=== PATIENT | male | born 1975 | race Caucasian/White ===

== ENCOUNTER → 2022-08-02 | Day surgery (SDC) | payer OTHER ==
[2022-07-31 12:32] LABS: BASOPHILS # (AUTO) 0.1 (0.0-0.1); BASOPHILS % 1.1 % (0.0-1.0); EOSINOPHILS # (AUTO) 0.3 (0.0-0.4); EOSINOPHILS % 3.3 % (0.0-6.0); HEMATOCRIT 45.1 % (38.2-49.6); LYMPHOCYTES # (AUTO) 2.4 (1.0-3.2); MEAN CORPUSCULAR HEMOGLOBIN 28.4 pg (28-32); MEAN CORPUSCULAR HGB CONC 33.3 g/dL (31-35); MEAN CORPUSCULAR VOLUME 85.3 fL (81-99); MONOCYTES # (AUTO) 0.8 (0.2-0.8); MONOCYTES % 10.7 % (4.4-11.3); NEUTROPHILS % 52.4 % (38.7-80.0); PLATELET COUNT 289 x10e3/uL (140-360); RED BLOOD COUNT 5.29 x10e6/uL (4.3-5.7); RED CELL DISTRIBUTION WIDTH 13.7 % (11.7-14.4)
[~2022-08-02] MED LIST: ACETAMINOPHEN 1000 MG/100 ML 0 ML IV ONE; ATORVASTATIN CA10 MG PO; BREZTRI AEROS10.7 GM INH; DEXAMETHASONE SOD PHOS INJ 4 MG/ML SDV ONE; FENTANYL CITRATE/PF 100MCG/2 ML INJ ONE; GLIPIZIDE5 MG PO; IBUPROFEN200 MG PO; LIDOCAINE HCL 2% LOCAL INJ 5 ML SDV VIAL INJ ONE; LIDOCAINE HCL 4% 50 ML BTL ONE; LIDOCAINE HCL-PF 4% 40 MG/1 ML 5ML AMP ONE; NEXIUM20 MG PO; NOVOLIN 70100 UNIT/3 SC; ONDANSETRON HCL INJ 2MG/ML 2ML 2 MG/ML VIAL ONE; POVIDONE IODINE 0.05% 0.05 % ML PO ONE; PROPOFOL IV EMULSION 10 MG/ML 20 ML VIAL ONE; ROCURONIUM BROMIDE 10 MG/ML 5ML VIAL IV ONE; SEVOFLURANE INHAL SOLN 250 ML PEN BTL ONE; SUGAMMADEX SODIUM 200 MG/2 ML VIAL IV ONE
[2022-08-02 13:45] VITALS: BP 120/85
== END | disposition home or self-care (01) ==
LOC: ENDO 09:46
PROVIDERS: ATTEND Internal Medicine Critical Care Medicine
DX: J84.113 Idiopathic non-specific interstitial pneumonitis (principal); J44.9 Chronic obstructive pulmonary disease, unspecified; Z01.810 Encounter for preprocedural cardiovascular examination; Z01.812 Encounter for preprocedural laboratory examination; Z79.4 Long term (current) use of insulin; Z79.84 Long term (current) use of oral hypoglycemic drugs; Z79.1 Long term (current) use of non-steroidal anti-inflammatories (NSAID); Z79.899 Other long term (current) drug therapy; Z68.35 Body mass index [BMI] 35.0-35.9, adult; Z87.891 Personal history of nicotine dependence
CPT/HCPCS: 31624; 31628; 36415 ×2; 71045; 82948; 85025; 87102; 87116; 87205; 87206 ×2; 87335; 88305; 93005; J1100; J2001; J2405; J2704; J3010; 31622; 88304